=== PATIENT | male | born 1990 | race African-American/Black ===

== ENCOUNTER 2017-02-06 04:33 | Emergency (ER) | payer BC ==
[~2017-02-06] VITALS: Ht 180.3 cm; Wt 65.9 kg
[~2017-02-06 04:33] MED LIST: CILOXAN .3% EY2.5 ML OP; CLINDAMYCIN300 MG PO; NO HOME MEDICATIONS; NORCO 325 MG-7.1 TAB PO
[2017-02-06 04:34] VITALS: TEMP 98
[2017-02-06] MEDS ORDERED: NORCO 325 MG-51 TAB PO (05:38)
[2017-02-06] MEDS ORDERED: AMOXICILLIN 50500 MG PO (05:38)
[2017-02-06 05:54] VITALS: BP 128/97; PULSE 80
== END 2017-02-06 06:00 | disposition home or self-care (01) ==
LOC: COL.ER 04:33
DX: S01.512A Laceration without foreign body of oral cavity, initial encounter (principal); S09.93XA Unspecified injury of face, initial encounter; F17.200 Nicotine dependence, unspecified, uncomplicated; Y04.2XXA Assault by strike against or bumped into by another person, initial encounter

== ENCOUNTER 2017-12-30 20:06 | Emergency (ER) | payer BC ==
[~2017-12-30] VITALS: Ht 182.9 cm; Wt 60.8 kg
[~2017-12-30 20:06] MED LIST changes: +AMOXICILLIN 50500 MG PO; +NORCO 325 MG-51 TAB PO
[2017-12-30 20:10] VITALS: BP 123/71; TEMP 102.3
[2017-12-30] MEDS ORDERED: AMOXICILLIN 50500 MG PO (21:03)
[2017-12-30 21:18] VITALS: PULSE 93
== END 2017-12-30 21:19 | disposition home or self-care (01) ==
LOC: COL.ER 20:06
DX: J02.0 Streptococcal pharyngitis (principal); F17.210 Nicotine dependence, cigarettes, uncomplicated

== ENCOUNTER 2018-11-01 19:59 | Emergency (ER) | payer SELFPAY ==
[~2018-11-01] VITALS: Ht 180.3 cm; Wt 65.9 kg
[2018-11-01 20:02] VITALS: BP 134/92; TEMP 97.9
[2018-11-01 22:25] VITALS: PULSE 61
== END 2018-11-01 22:25 | disposition home or self-care (01) ==
LOC: COL.ER 19:59
DX: S62.304A Unspecified fracture of fourth metacarpal bone, right hand, initial encounter for closed fracture (principal); F17.210 Nicotine dependence, cigarettes, uncomplicated; Z88.6 Allergy status to analgesic agent; W23.0XXA Caught, crushed, jammed, or pinched between moving objects, initial encounter; Y93.E9 Activity, other interior property and clothing maintenance; Y92.009 Unspecified place in unspecified non-institutional (private) residence as the place of occurrence of the external cause
CPT/HCPCS: Q4021

== ENCOUNTER 2019-01-01 16:56 | Emergency (ER) | payer SELFPAY ==
[~2019-01-01] VITALS: Ht 180.3 cm; Wt 65.9 kg
[2019-01-01 17:09] VITALS: BP 135/80; PULSE 94; TEMP 98.9
== END 2019-01-01 18:10 | disposition home or self-care (01) ==
LOC: COL.ER 16:56
DX: S62.304A Unspecified fracture of fourth metacarpal bone, right hand, initial encounter for closed fracture (principal); F17.210 Nicotine dependence, cigarettes, uncomplicated; W22.8XXA Striking against or struck by other objects, initial encounter

== ENCOUNTER 2023-06-19 11:12 | Emergency (ER) | payer OTHER ==
[~2023-06-19] VITALS: Ht 180.3 cm; Wt 70.9 kg
[2023-06-19 11:22] VITALS: BP 130/86; TEMP 97.8
[2023-06-19 13:57] VITALS: PULSE 95
== END 2023-06-19 13:57 | disposition home or self-care (01) ==
LOC: COL.ER 11:12
DX: R07.81 Pleurodynia (principal); V29.99XA Rider (driver) (passenger) of other motorcycle injured in unspecified traffic accident, initial encounter; Y92.410 Unspecified street and highway as the place of occurrence of the external cause
CPT/HCPCS: J1885

== ENCOUNTER 2023-06-28 23:37 | Emergency (ER) | payer OTHER ==
[~2023-06-28] VITALS: Ht 180.3 cm; Wt 68.6 kg
[2023-06-28 23:46] VITALS: TEMP 98.6
[2023-06-29 00:13] LABS: BASO # 0.1 K/mm3 (0.0-0.2); BASO % 0.9 % (0.0-2.0); EOS # 0.1 K/mm3 (0.0-0.7); EOS % 1.1 % (0.0-4.0); GRAN # 6.1 K/mm3 (1.4-6.5); GRAN % 66.8 % (42.2-75.2); HEMATOCRIT 38.1 % (42.0-52.0); HEMOGLOBIN 12.8 g/dl (13.5-18.0); LYMPH # 1.8 K/mm3 (1.2-3.4); LYMPH % 19.2 % (20.0-51.0); MEAN CELL VOLUME 91 fl (80.0-100.0); MEAN CORPUSCULAR HEMOGLOBIN 31 pg (27-31); MEAN CORPUSCULAR HGB CONC 34 g/dl (33.0-37.0); MEAN PLATELET VOLUME 10.2 fl (7.4-10.4); MONO # 1.1 K/mm3 (0.1-0.6); MONO % 11.7 % (1.7-9.3); PLATELET COUNT 325 K/mm3 (130-400); REDCELL DISTRIBUTION WIDTH-CV 13.8 % (11.5-14.5)
[2023-06-29 00:39] LABS: ALBUMIN 3.7 gm/dL (3.5-5.0); BILIRUBIN,TOTAL 0.3 mg/dL (0.2-1.2); C-REACTIVE PROTEIN 0.3 mg/dL (0.00-0.50); CALCIUM 9.4 mg/dL (8.4-10.2); CREATININE, serum 0.8 mg/dL (0.72-1.25); POTASSIUM 3.6 mmol/L (3.5-4.5); TOTAL PROTEIN 7.6 gm/dL (6.2-8.1)
[2023-06-29 01:44] VITALS: BP 144/96; PULSE 79
== END 2023-06-29 01:44 | disposition home or self-care (01) ==
LOC: COL.ER 23:37
PROVIDERS: Nurse Practitioner Primary Care
DX: K52.9 Noninfective gastroenteritis and colitis, unspecified (principal); F17.210 Nicotine dependence, cigarettes, uncomplicated; F17.290 Nicotine dependence, other tobacco product, uncomplicated
CPT/HCPCS: J2405; J7030